=== PATIENT | female | born 1965 | race Two or more races ===

== ENCOUNTER 2021-11-05 01:11 | Emergency (ER) | payer BC ==
[2021-11-05] MEDS ORDERED: Ondansetron 4 MG Tab.DIS PO ONE (02:22)
[2021-11-05] MEDS ORDERED: Ibuprofen 400 MG Tab PO ONE (02:22)
== END 2021-11-05 04:12 | disposition home or self-care (01) ==
LOC: MW.ED 01:11
DX: S09.90XA Unspecified injury of head, initial encounter (principal); Z88.6 Allergy status to analgesic agent; Z91.013 Allergy to seafood; Z88.2 Allergy status to sulfonamides; Z79.899 Other long term (current) drug therapy; Z79.4 Long term (current) use of insulin; W20.8XXA Other cause of strike by thrown, projected or falling object, initial encounter
CPT/HCPCS: 70450; 99283; A9270

== ENCOUNTER 2021-11-13 20:00 | Emergency (ER) | payer BC ==
[2021-11-13] MEDS: Metoclopramide 10 MG/2 ML SDV IVPUSH ONE (21:37)
[2021-11-13] MEDS: diphenhydrAMINE 50 MG/ML SDV IVPUSH ONE (21:37)
[2021-11-13] MEDS: Ketorolac 30 MG/ML SDV IVPUSH ONE (21:37)
[2021-11-13] MEDS: Sodium Chloride 0.9% 2.5 ML Syringe FLUSH PRN (21:37)
[2021-11-13] MEDS: Ondansetron 4 MG/2 ML SDV IVPUSH ONE (21:37)
[2021-11-13] MEDS: Sodium Chloride 0.9% 10 ML Syringe FLUSH PRN (21:38)
[2021-11-13] MEDS: Sodium Chloride 0.9% 1,000 ML IV ONE (21:38)
[2021-11-13] MEDS: Clopidogrel 75 MG Tab PO ONE (21:38)
[2021-11-13 22:13] LABS: CARBON DIOXIDE,CO2 28.2 mmol/L (21.0-32.0); POTASSIUM,K 3.6 mmol/L (3.5-5.1)
== END 2021-11-14 00:15 | disposition home or self-care (01) ==
LOC: MW.ED 20:00
DX: R51.9 Headache, unspecified (principal); Z88.6 Allergy status to analgesic agent; Z91.013 Allergy to seafood; Z88.2 Allergy status to sulfonamides; Z88.8 Allergy status to other drugs, medicaments and biological substances; Z79.899 Other long term (current) drug therapy; Z79.4 Long term (current) use of insulin; Z79.84 Long term (current) use of oral hypoglycemic drugs; Z20.822 Contact with and (suspected) exposure to COVID-19
CPT/HCPCS: 36415; 70450; 80053; 85025; 87635; 96361; 96374; 96375; 99284; A9270; J1200; J1885; J2405; J2765; J3490; J7030; U0002